=== PATIENT | female | born 1995 | race Caucasian/White ===

== ENCOUNTER → 2021-10-25 18:35 | Outpatient (BNVA) | payer OTHER, SELFPAY | PROVIDERS: Visit Provider Registered Nurse Neonatal Intensive Care | DX: Z20.822 Contact with and (suspected) exposure to COVID-19 (principal) | CPT/HCPCS: 87635 ==

== ENCOUNTER 2022-09-28 13:12 | Emergency (ER) | payer MEDICAID, SELFPAY ==
[2022-09-28 14:16] VITALS: BP 187/100; PULSE 83; RESP 14; TEMP 36.8; O2SAT 98
--- NOTE | 2022-09-28 15:24 | USR_ITS ---
PROCEDURE INFORMATION: Exam: US First Trimester, Transabdominal Exam date and time: 09/28/2022 4:10 PM Age: 27 years old Clinical indication: Antepartum complications; Bleeding and hemorrhage; complicated by abdominal or pelvic pain; Lower; First trimester (<14 weeks 0 days); Gestational age or lmp: ? 10 weeks; ; Patient HX: Currently passing clots; Additional info: 8 weeks preg with vaginal bleeding LABS AND CLINICAL REPORTS: Last menstrual period start date: Unknown TECHNIQUE: Imaging protocol: Real-time transabdominal obstetrical ultrasound of the maternal pelvis and a first trimester , less than 14 weeks 0 days, with image documentation. COMPARISON: US abdomen limited [id number] 03/28/2019 11:45 AM FINDINGS: Gestation: No intrauterine identified. MATERNAL: Uterus: Uterus 7.6 x 4.0 x 5.4 cm. Cervix: Unremarkable. Right ovary/adnexa: Right ovary not identified, no adnexal abnormality. Left ovary/adnexa: Left ovary not identified, no adnexal abnormality. Intraperitoneal space: No intraperitoneal free fluid. US/US OB <= 14 weeks fetus [id number] IMPRESSION: No intrauterine identified.
--- NOTE | 2022-09-28 15:25 | ED_ITS ---
Documented by User: DARLENE Whyte 09/28/22 17:00 HPI - General: Chief complaint: Vaginal Bleeding Stated complaint: Passing blood Time Seen by Provider: 09/28/22 15:16 History of Present Illness: Patient is a G2, P0 27-year-old female that is cu rrently 8 weeks and is here for vaginal bleeding. She states that approximately a week ago she started having some light pink spotting. She went to [facility] and ultrasound was performed and baby looked healthy and patient was diagnosed with a UTI. She was discharged home on an antibiotic. This morning she woke up and there is a lot of blood on her sheets. She passed a large clot or potential products at home while going to the bathroom. Now she says her vaginal bleeding is mild and she only has visible blood when she wipes after she goes to the bathroom. She is not bleeding through any pads over span of 1 to 2 hours. She endorses having some lower abdominal cramping pain and nausea. Denies any episodes of emesis. Denies any fevers. Her first and previous resulted in an early miscarriage. Associated symptoms: Deny abdominal pain, dysuria, headache(s), nausea or vomiting Review of Systems Const: Denies: fever(s), chills or fatigue Eyes: Denies: change in vision or eye discomfort ENMT: Denies: throat pain, odynophagia, nasal discharge or nasal congestion Card: Denies: chest pain, palpitations, edema, swelling of feet/ankles, dyspnea on exertion or orthopnea Resp: Denies: dyspnea, productive cough or non-productive cough GI: Reports: GI cramping; Denies: abdominal pain, nausea, vomiting, diarrhea, constipation or hematochezia : Reports: vaginal bleeding and pelvic pain (Lower abdominal cramping pain); Denies: flank pain, dysuria or hematuria Musc: Denies: neck pain, back pain or extremity swelling Skin/Breast: Denies: rash or new lesions Neuro: Denies: headache(s), numbness in extremities or weakness in extremities PFSH ED PFSH: Medical History Miscarriage No pertinent family history Physical Exam Const: COMMON NORMALS: no acute distress, patient oriented x3 and alert GENERAL APPEARANCE: cooperative and comfortable HENMT: COMMON NORMALS: normocephalic HEAD & SCALP: normocephalic MOUTH: Normal oral and palatal mucosa present THROAT: posterior oropharynx normal and uvula midline Neck/C-Spine: COMMON NORMALS: supple GENERAL: Yes normal visual inspection Resp: COMMON NORMALS: normal respiratory effort, No retractions, No use of accessory muscles and clear to auscultation bilaterally AUSCULTATION: clear to auscultation bilaterally Cardio: COMMON NORMALS: regular rate, regular rhythm, S1 normal heart sound present, S2 normal heart sound present, No gallops present (Cardio), No clicks present (Cardio), No murmurs present (Cardio) and Peripheral pulses 2+ throughout RATE: regular rate RHYTHM: regular rhythm HEART SOUNDS: S1 normal heart sound present and S2 normal heart sound present PERIPHERAL PULSES: Peripheral pulses 2+ throughout GI: COMMON NORMALS: Normal to inspection, nondistended, normoactive bowel sounds present, Soft to palpation and no masses PALPATION: Yes Soft to palpation and Yes Tenderness to palpation present (GI) (Generalized lower quadrant mild tenderness to palpation) Details: LLQ and RLQ : COMMON NORMALS: Yes no CVA tenderness BLADDER/KIDNEY EXAM: Yes no CVA tenderness Back/Pelvis: COMMON NORMALS: no CVA tenderness Extremity: COMMON NORMALS: normal to inspection Neuro: COMMON NORMALS: patient oriented x3 SENSORIUM/ORIENTATION: Yes alert GAIT: Yes Normal gait present Skin: GENERAL SKIN EXAM: dry skin Course Vital Signs: Vital signs: Vital Signs Temperature 98.2 F 09/28/22 14:16 Pulse Rate 83 09/28/22 14:16 Respiratory Rate 14 09/28/22 14:16 Blood Pressure 187/100 09/28/22 14:16 Pulse Oximetry 98 09/28/22 14:16 Oxygen Delivery Me thod 09/28/22 14:16 MDM - OB/Uterine Contractions Medical Decision Making Patient is a G2, P0 27-year-old female that is currently 8 weeks and is here for vaginal bleeding. She has passed some large clots in the toilet earlier today. she is having very mild vaginal bleeding and only see some red blood when she wipes, but is not bleeding through a pad over a 1 to 2-hour span. She has some mild lower abdominal cramping. Vitals are stable. Patient appears nontoxic in no acute distress or pain. She has some mild generalized lower abdominal tenderness to palpation the rest of exam is benign. Labs and u ltrasound are pending. Patient case was signed over to [facility] nurse practitioner for further management of care. Lab Data 09/28/22 16:52 09/28/22 16:52 Radiology Impressions Ultrasound 09/28/22 15:24 IMPRESSION: No intrauterine identified. Laboratory Results WBC 9.6 10^3/uL (4.0-10.0) 09/28/22 16:52 RBC 5.33 10^6/uL (4.1-5.3) H 09/28/22 16:52 Hgb 15.4 g/dL (11.5-15.3) H 09/28/22 16:52 Hct 47.0 % (37.0-47.0) 09/28/22 16:52 MCV 88.2 fl (81-99) 09/28/22 16:52 MCH 28.9 pg (28.0-34.0) 09/28/22 16:52 MCHC 32.8 g/dL (30.0-36.0) 09/28/22 16:52 RDW 12.3 % (12.1-15.1) 09/28/22 16:52 Plt Count 331 10^3/cmm (130-400) 09/28/22 16:52 MPV 10.7 fL (7.4-10.4) H 09/28/22 16:52 Neut % (Auto) 59.7 % 09/28/22 16:52 Lymph % (Auto) 29.8 % 09/28/22 16:52 [place] % (Auto) 7.5 % 09/28/22 16:52 Eos % (Auto) 1.9 % 09/28/22 16:52 Baso % (Auto) 0.9 % 09/28/22 16:52 Neut # (Auto) 5.71 10^3/uL (1.8-7.7) 09/28/22 16:52 Lymph # (Auto) 2.9 10^3/uL (0.8-4.8) 09/28/22 16:52 [place] # (Auto) 0.7 10^3/uL (0.2-0.9) 09/28/22 16:52 Eos # (Auto) 0.2 10^3/uL (0.0-0.8) 09/28/22 16:52 Baso # (Auto) 0.1 10^3/uL (0.0-0.1) 09/28/22 16:52 Nucleated RBC % (auto) 0 % 09/28/22 16:52 Nucleated RBCs # 0.0 /100WBC 09/28/22 16:52 Potassium 4.0 mmol/L (3.5-5.1) 09/28/22 16:52 Chloride 102 mmol/L (98-107) 09/28/22 16:52 Carbon Dioxide 22 mmol/L (22-29) 09/28/22 16:52 Anion Gap 13.0 (5-19) 09/28/22 16:52 BUN 12 mg/dL (6-20) 09/28/22 16:52 Creatinine 0.8 mg/dL (0.5-0.9) 09/28/22 16:52 Glucose 94 mg/dL (65-115) 09/28/22 16:52 Calcium 9.1 mg/dL (8.5-10.5) 09/28/22 16:52 Ser , Semi-Qnt 2007.00 mIU/mL 09/28/22 16:52 Blood Type O Positive 09/28/22 16:52 Rho(D) Type Positive 09/28/22 16:52 Discharge Plan Discharge Patient Disposition: Home Clinical Impression: Miscarriage Condition: Stable Prescriptions: No Action tramadol 50 mg tablet 50 mg PO TID PRN lisinopril 10 mg tablet 10 mg PO DAILY Discharge Orders: Discharge ED (Routine); Ordered 09/28/22 Ordered By: Sofie Davidson Discharge Diet: Usual diet Discharge Activity: Increase activity as tolerated Patient Instructions: Rh (By injection) (HyperRHO S/D, MICRhoGAM Ultra-Filtered Plus,..., Miscarriage (ED), Rh Factor Incompatibility (DC) Activity Restrictions/Additional Instructions: we are still waiting for your Rh results. As discussed your Rh is the POS or NEG portion of your blood type. If you are a NEG, you need to have a RhoGAM shot if there is bleeding in due to a possible type cross reactivity. If your testing comes back NEG, you need to have this medication given either in the ER or by your OBGYN- as soon as possible. Your hormone level did post at this time of discharge is approx 1999. Notify your OBGYN as you need repeat labs checked in 48hrs to monitor this number. Thank you! Sign Out Sign Out Data: Patient Sign Out occurred on 09/28/22 at 17:05. Patient's care was discussed, and care was transferred from to DARLENE Coombs. Coding Level of Care Code ED Aircraft Maintenance Technician for Chg Fwd Exam Comprehensive Documented by User: DARLENE Coombs 09/28/22 17:37 HPI - General: Chief complaint: Vaginal Bleeding Stated complaint: Passing blood Time Seen by Provider: 09/28/22 15:16 PFSH ED PFSH: Medical History Miscarriage No pertinent family history Course Vital Signs: Vital signs: Vital Signs Temperature 98.2 F 09/28/22 14:16 Pulse Rate 83 09/28/22 14:16 Respiratory Rate 14 09/28/22 14:16 Blood Pressure 187/100 09/28/22 14:16 Pulse Oximetry 98 09/28/22 14:16 Oxygen Delivery Me thod 09/28/22 14:16 MDM - OB/Uterine Contractions Differential Diagnosis Unlikely hemorrhage (likely miscarriage, subchorionic hemorrhage), -induced hypertension, premature labor or pre-eclampsia Lab Data 09/28/22 16:52 09/28/22 16:52 Radiology Impressions Ultrasound 09/28/22 15:24 IMPRESSION: No intrauterine identified. Laboratory Results WBC 9.6 10^3/uL (4.0-10.0) 09/28/22 16:52 RBC 5.33 10^6/uL (4.1-5.3) H 09/28/22 16:52 Hgb 15.4 g/dL (11.5-15.3) H 09/28/22 16:52 Hct 47.0 % (37.0-47.0) 09/28/22 16:52 MCV 88.2 fl (81-99) 09/28/22 16:52 MCH 28.9 pg (28.0-34.0) 09/28/22 16:52 MCHC 32.8 g/dL (30.0-36.0) 09/28/22 16:52 RDW 12.3 % (12.1-15.1) 09/28/22 16:52 Plt Count 331 10^3/cmm (130-400) 09/28/22 16:52 MPV 10.7 fL (7.4-10.4) H 09/28/22 16:52 Neut % (Auto) 59.7 % 09/28/22 16:52 Lymph % (Auto) 29.8 % 09/28/22 16:52 [place] % (Auto) 7.5 % 09/28/22 16:52 Eos % (Auto) 1.9 % 09/28/22 16:52 Baso % (Auto) 0.9 % 09/28/22 16:52 Neut # (Auto) 5.71 10^3/uL (1.8-7.7) 09/28/22 16:52 Lymph # (Auto) 2.9 10^3/uL (0.8-4.8) 09/28/22 16:52 [place] # (Auto) 0.7 10^3/uL (0.2-0.9) 09/28/22 16:52 Eos # (Auto) 0.2 10^3/uL (0.0-0.8) 09/28/22 16:52 Baso # (Auto) 0.1 10^3/uL (0.0-0.1) 09/28/22 16:52 Nucleated RBC % (auto) 0 % 09/28/22 16:52 Nucleated RBCs # 0.0 /100WBC 09/28/22 16:52 Potassium 4.0 mmol/L (3.5-5.1) 09/28/22 16:52 Chloride 102 mmol/L (98-107) 09/28/22 16:52 Carbon Dioxide 22 mmol/L (22-29) 09/28/22 16:52 Anion Gap 13.0 (5-19) 09/28/22 16:52 BUN 12 mg/dL (6-20) 09/28/22 16:52 Creatinine 0.8 mg/dL (0.5-0.9) 09/28/22 16:52 Glucose 94 mg/dL (65-115) 09/28/22 16:52 Calcium 9.1 mg/dL (8.5-10.5) 09/28/22 16:52 Ser , Semi-Qnt 2007.00 mIU/mL 09/28/22 16:52 Blood Type O Positive 09/28/22 16:52 Rho(D) Type Positive 09/28/22 16:52 Discharge Plan Discharge Patient Disposition: Home Clinical Impression: Miscarriage Condition: Stable Prescriptions: No Action tramadol 50 mg tablet 50 mg PO TID PRN lisinopril 10 mg tablet 10 mg PO DAILY Discharge Orders: Discharge ED (Routine); Ordered 09/28/22 Ordered By: Sofie Davidson Discharge Diet: Usual diet Discharge Activity: Increase activity as tolerated Patient Instructions: Rh (By injection) (HyperRHO S/D, MICRhoGAM Ultra-Filtered Plus,..., Miscarriage (ED), Rh Factor Incompatibility (DC) Activity Restrictions/Additional Instructions: we are still waiting for your Rh results. As discussed your Rh is the POS or NEG portion of your blood type. If you are a NEG, you need to have a RhoGAM shot if there is bleeding in due to a possible type cross reactivity. If your testing comes back NEG, you need to have this medication given either in the ER or by your OBGYN- as soon as possible. Your hormone level did post at this time of discharge is approx 2000. Notify your OBGYN as you need repeat labs checked in 48hrs to monitor this number. Thank you! Sign Out Sign Out Data: Patient Sign Out occurred on 09/28/22 at 17:05. Patient's care was discussed, and care was transferred from to DARLENE Coombs. Coding Level of Care Code ED Aircraft Maintenance Technician for Teresa Fwd Exam Comprehensive
[2022-09-28] MEDS: ondansetron 2 mg/ML SDV 2 mL 4 MG IM (16:05)
[2022-09-28] MEDS: acetaminophen 500 mg Tablet 1000 MG PO (16:05)
[2022-09-28 17:01] LABS: Basophils # 0.1 10^3/uL (0.0-0.1); Basophils % 0.9 %; Eosinophils # 0.2 10^3/uL (0.0-0.8); Eosinophils % 1.9 %; Hemoglobin 15.4 g/dL (11.5-15.3); Lymphocytes # 2.9 10^3/uL (0.8-4.8); Lymphocytes % 29.8 %; Mean Corpuscular HGB Conc 32.8 g/dL (30.0-36.0); Mean Corpuscular Hemoglobin 28.9 pg (28.0-34.0); Mean Corpuscular Volume 88.2 fl (81-99); Mean Platelet Volume 10.7 fL (7.4-10.4); Monocytes # 0.7 10^3/uL (0.2-0.9); Monocytes % 7.5 %; Neutrophils # 5.71 10^3/uL (1.8-7.7); Neutrophils % 59.7 %; Nucleated Red Blood Cells % 0 %; Platelet Count 331 10^3/cmm (130-400); Red Blood Count 5.33 10^6/uL (4.1-5.3); Red Cell Distribution Width 12.3 % (12.1-15.1); White Blood Count 9.6 10^3/uL (4.0-10.0)
[2022-09-28 17:33] LABS: Blood Urea Nitrogen 12 mg/dL (6-20); Calcium 9.1 mg/dL (8.5-10.5); Carbon Dioxide 22 mmol/L (22-29); Chloride 102 mmol/L (98-107); Glomerular Filtration Rate 86.7 mL/min (90-130); Glucose 94 mg/dL (65-115); Osmolality Calculated 276 mOsm/kg (285-295); Sodium 133 mmol/L (136-145)
[2022-09-28 17:41] LABS: Urine Appearance Hazy (CLEAR); Urine Color Dark Yellow (Yellow); pH Urine 6 (5-7)
[2022-09-28 17:42] LABS: Add Urine Culture? Yes; Add Urine Microscopic? YES; Bacteria Urine 1+ /hpf; Bilirubin Urine Neg (Negative); Blood Urine 3+ (Negative); Glucose Urine UA Norm (Normal); Ketones Urine Negative (Negative); Leukocyte Esterase Urine Trace (Negative); Nitrate Urine Negative (Negative); Protein Urine 1+ (Negative); RBC Urine 25-40 /hpf (0-2); Urobilinogen Urine 4 mg/dL (Negative)
== END 2022-09-28 17:40 | disposition home or self-care (01) ==
PROVIDERS: Emergency Medicine; Physician Assistant; Emergency Provider Physician Assistant
DX: O03.9 Complete or unspecified spontaneous abortion without complication (principal)
CPT/HCPCS: 76801; 80048; 81001; 84702; 85025; 86900; 87086; 96372; 99285; J2405

== ENCOUNTER → 2024-09-22 12:03 | Outpatient (BNVA) | payer OTHER, SELFPAY | PROVIDERS: PCP Nurse Practitioner Family; Visit Provider Nurse Practitioner Family | DX: J06.9 Acute upper respiratory infection, unspecified (principal) | CPT/HCPCS: 87400; 87426 ==

== ENCOUNTER 2025-01-30 14:35 | Oncology outpatient (recurring) (ONCR) | payer BC, MEDICAID, SELFPAY | END 2025-02-01 23:59 | disposition home or self-care (01) | LOC: ONCMED 14:36 | PROVIDERS: PCP Nurse Practitioner Family; Visit Provider Internal Medicine Medical Oncology | DX: Z53.9 Procedure and treatment not carried out, unspecified reason (principal) ==